=== PATIENT | male | born 1960 | race American Indian/Alaskan Native ===

== ENCOUNTER 2016-11-23 06:27 | Observation (INO) ==
[2016-11-23] MEDS ORDERED: IPRATROPIUM/ALBUTEROL 3 ML AMPUL.NEB NEB ONE (06:36)
--- NOTE | 2016-11-23 07:21 | Emergency Department Note ---
SOB HPI - General Chief Complaint: Shortness of Breath/Dyspnea Stated Complaint: shortness of breath Time Seen by Provider: 11/23/16 07:15 Source: patient Mode of arrival: ambulatory Limitations: no limitations - History of Present Illness This patient has had shortness of breath on and off since June when he had pneumonia. He says steroids and DuoNeb treatments never help him. Last night he did wake up very short of breath. He has had some edema. He has had some blood work at [facility] that we do not know the results. Has never had an echocardiogram. Has some epigastric pain currently but no actual chest pain. MD Complaint: shortness of breath, chest pain (left lateral chest tenderness or he thinks he might of broken a rib couple of weeks ago.) Onset (ago): month(s) Severity: moderate Consistency/Duration: intermittent Improves with: nothing Worsens with: lying flat Associated symptoms: Reports: denies other symptoms - Related Data Home Medications Medication Instructions Recorded Confirmed metFORMIN [Glucophage] 500 mg PO BIDCC 11/23/16 11/23/16 Allergies Allergy/AdvReac Type Severity Reaction Status Date / Time Penicillins Allergy Unknown Verified 11/23/16 06:33 Sulfa (Sulfonamide Allergy Unknown Verified 11/23/16 06:33 Antibiotics) Review of Systems Constitutional: Denies: fever Eyes: Denies: eye pain ENT ED: Denies: ear pain, throat pain Cardiovascular: Reports: dyspnea on exertion, orthopnea, edema. Denies: chest pain, palpitations Respiratory: Reports: dyspnea. Denies: cough, wheezes Gastrointestinal: Denies: abdominal pain, nausea, vomiting Genitourinary: Denies: urgency Musculoskeletal: Denies: back pain Integumentary: Denies: rash Neurological: Denies: headache Past Medical History - Past Medical History Medical history: Reports: diabetes Physical Exam - General Limitations: no limitations General appearance: alert, in no apparent distress - Head Head exam: atraumatic, normocephalic - Eye Eye exam: Present: normal appearance, PERRL - ENT ENT exam: normal exam, normal oropharynx - Neck Neck exam: Present: normal inspection - Chest Chest inspection: Present: normal inspection, symmetric chest wall rise - Respiratory Respiratory exam: Present: other (scattered rales and rhonchi) - Cardiovascular Cardiovascular exam: Present: regular rate, normal rhythm, normal heart sounds - Abdominal Exam Abdominal exam: Present: soft, tenderness. Absent: distention Abdominal tenderness: Present: epigastrium, mild - Neurological Exam Neurological exam: Present: alert, oriented X3 - Psychiatric Psychiatric exam: Present: normal affect, normal mood - Skin Skin exam: Present: warm, dry Course Vital Signs Pulse Rate 89 11/23/16 06:27 Respiratory Rate 20 11/23/16 06:27 Blood Pressure 148/103 11/23/16 06:27 Pulse Oximetry (%) 97 11/23/16 06:27 Pulse Rate 109 H 11/23/16 07:54 Respiratory Rate 28 H 11/23/16 07:54 Blood Pressure 145/105 11/23/16 07:54 Pulse Oximetry (%) 95 11/23/16 07:54 Shortness of Breath/Dyspnea - [facility] Narrative Medical decision making narrative: An x-ray is primary problem is congestive heart failure. His BNP is 8000 chest x-ray looks like heart failure. We will start Lasix and he'll be admitted to telemetry by Dr. Kirby. - Lab Data Lab results reviewed: Yes I reviewed the patient's lab results. Result diagrams: 11/23/16 06:50 11/23/16 06:50 Lab Results 11/23/16 11/23/16 11/23/16 Range/Units 06:50 06:50 06:50 WBC 7.4 (4.5-11.0) K/mcL RBC 5.09 (4.50-5.90) M/mcL Hgb 14.6 (13.5-16.5) g/dL Hct 45.5 (41.0-55.0) % MCV 89.4 (80.0-100.0) fL MCH 28.7 (26.0-34.0) pg MCHC 32.2 (31.0-36.0) g/dL RDW 14.9 H (11.5-14.5) % Plt Count 177 (140-440) K/mcL MPV 8.6 (7.4-10.4) fL Gran % 65.3 (38.0-78.0) % Lymph % (Auto) 23.6 (15.5-49.0) % [place] % (Auto) 7.7 (1.0-12.0) % Eos % (Auto) 2.8 (0.0-7.0) % Baso % (Auto) 0.6 (0.0-2.0) % Gran # 4.9 (1.8-8.0) K/mcL Lymph # 1.8 (1.5-4.8) K/mcL [place] # 0.6 (0.1-0.9) K/mcL Eos # 0.2 (0.0-0.7) K/mcL Baso # 0 (0.0-0.3) K/mcL D-Dimer (0.00-0.40) ug/ml Sodium 140 (133-145) mmol/L Potassium 4.2 (3.3-5.1) mmol/L Chloride 104 (96-108) mmol/L Carbon Dioxide 20 L (22-30) mmol/L Anion Gap 16.0 (8-16) BUN 18 (6-20) mg/dl Creatinine 1.6 H (0.7-1.2) mg/dl GFR Calculation 47 Glucose 234 H (70-105) mg/dL Calcium 8.8 (8.6-10.4) mg/dl Total Bilirubin 1.6 H (0.0-1.0) mg/dL AST 18 (0-37) U/l ALT 20 (0-40) U/l Alkaline Phosphatase 76 (39-117) U/L Troponin T < 0.01 (0-0.03) ng/ml NT-Pro-B Natriuret Pep (0-125) pg/ml Total Protein 6.9 (5.9-8.4) gm/dL Albumin 3.6 (3.2-5.2) gm/dL Globulin 3.3 (2.2-3.7) gm/dL Albumin/Globulin Ratio 1.1 (1.0-2.3) Lipase 39 (7-60) U/L Urine Color Urine Appearance Urine pH (5.0-9.0) Ur Specific Alexis (1.000-1.035) Urine Protein (NEG) mg/dL Urine Glucose (UA) (NEG) mg/dL Urine Ketones (NEG) mg/dL Urine Occult Blood (<0.03) mg/dL Urine Nitrate (NEG) Urine Bilirubin (NEG) mg/dL Urine Urobilinogen (NEG) mg/dL Ur Leukocyte Esterase (NEG) /uL Urine RBC (0-1) /hpf Urine WBC (0-4) /hpf Ur Squamous Epith Cells (0-4) /hpf Urine Bacteria (0) /hpf Hyaline Casts (0-2) /lpf Urine Mucus (0) /hpf Ur Culture Indicated? 11/23/16 11/23/16 11/23/16 Range/Units 06:50 06:50 07:21 WBC (4.5-11.0) K/mcL RBC (4.50-5.90) M/mcL Hgb (13.5-16.5) g/dL Hct (41.0-55.0) % MCV (80.0-100.0) fL MCH (26.0-34.0) pg MCHC (31.0-36.0) g/dL RDW (11.5-14.5) % Plt Count (140-440) K/mcL MPV (7.4-10.4) fL Gran % (38.0-78.0) % Lymph % (Auto) (15.5-49.0) % [place] % (Auto) (1.0-12.0) % Eos % (Auto) (0.0-7.0) % Baso % (Auto) (0.0-2.0) % Gran # (1.8-8.0) K/mcL Lymph # (1.5-4.8) K/mcL [place] # (0.1-0.9) K/mcL Eos # (0.0-0.7) K/mcL Baso # (0.0-0.3) K/mcL D-Dimer 1.43 H (0.00-0.40) ug/ml Sodium (133-145) mmol/L Potassium (3.3-5.1) mmol/L Chloride (96-108) mmol/L Carbon Dioxide (22-30) mmol/L Anion Gap (8-16) BUN (6-20) mg/dl Creatinine (0.7-1.2) mg/dl GFR Calculation Glucose (70-105) mg/dL Calcium (8.6-10.4) mg/dl Total Bilirubin (0.0-1.0) mg/dL AST (0-37) U/l ALT (0-40) U/l Alkaline Phosphatase (39-117) U/L Troponin T (0-0.03) ng/ml NT-Pro-B Natriuret Pep 8794.0 H (0-125) pg/ml Total Protein (5.9-8.4) gm/dL Albumin (3.2-5.2) gm/dL Globulin (2.2-3.7) gm/dL Albumin/Globulin Ratio (1.0-2.3) Lipase (7-60) U/L Urine Color Yellow Urine Appearance Hazy Urine pH 5.0 (5.0-9.0) Ur Specific Alexis 1.026 (1.000-1.035) Urine Protein >=500 A (NEG) mg/dL Urine Glucose (UA) 150 A (NEG) mg/dL Urine Ketones Neg (NEG) mg/dL Urine Occult Blood Neg (<0.03) mg/dL Urine Nitrate Neg (NEG) Urine Bilirubin Neg (NEG) mg/dL Urine Urobilinogen Neg (NEG) mg/dL Ur Leukocyte Esterase Neg (NEG) /uL Urine RBC < 1 (0-1) /hpf Urine WBC 1 (0-4) /hpf Ur Squamous Epith Cells 1 (0-4) /hpf Urine Bacteria 0 (0) /hpf Hyaline Casts 4 H (0-2) /lpf Urine Mucus Few (0) /hpf Ur Culture Indicated? No - Radiology Data Radiology results reviewed: Yes I reviewed the patient's radiology results. ( chest x-ray is consistent with congestive heart failure.) - EKG Data EKG shows normal: Reports: sinus rhythm Rate: Reports: tachycardia Interpretation: Reports: no acute changes, normal EKG Disposition Clinical Impression: Congestive heart failure Disposition: Xfer As Outpt/Obs ([facility]) Condition: Good Referrals: Hi Morrell ARNP [Primary Care Provider] - Time of Disposition: 08:22
[2016-11-23 07:24] LABS: Basophils # (Auto) 0 K/mcL (0.0-0.3); Basophils % (Auto) 0.6 % (0.0-2.0); Eosinophils # (Auto) 0.2 K/mcL (0.0-0.7); Eosinophils % (Auto) 2.8 % (0.0-7.0); Granulocytes % (Auto) 65.3 % (38.0-78.0); Lymphocytes # (Auto) 1.8 K/mcL (1.5-4.8); Lymphocytes % (Auto) 23.6 % (15.5-49.0); Mean Cell Volume 89.4 fL (80.0-100.0); Mean Corpuscular HGB Conc 32.2 g/dL (31.0-36.0); Mean Corpuscular Hemoglobin 28.7 pg (26.0-34.0); Monocytes # (Auto) 0.6 K/mcL (0.1-0.9); Monocytes % (Auto) 7.7 % (1.0-12.0); Platelet Count 177 K/mcL (140-440); RBC 5.09 M/mcL (4.50-5.90); Red Cell Distribution Width 14.9 % (11.5-14.5)
[2016-11-23 07:48] LABS: ALT/SGPT 20 U/l (0-40); Albumin 3.6 gm/dL (3.2-5.2); Albumin/Globulin Ratio 1.1 (1.0-2.3); Alkaline Phosphatase 76 U/L (39-117); Blood Urea Nitrogen 18 mg/dl (6-20); Lipase 39 U/L (7-60)
[2016-11-23 08:09] LABS: Appearance,Urine HAZY; Bacteria,Urine 0 /hpf (0); Bilirubin,Urine NEG (NEG); Color,Urine YELLOW; Glucose,Urine (UA) 150 mg/dL (NEG); Leukocyte Esterase,Urine NEG /uL (NEG); Mucus,Urine FEW /hpf (0); Nitrate,Urine NEG (NEG); Protein,Urine >=500 mg/dL (NEG); Specific Gravity,Urine 1.026 (1.000-1.035); Urine Blood NEG mg/dL (<0.03); Urine Hyaline Cast 4 /lpf (0-2); Urine RBC < 1 /hpf (0-1); Urine Squamous Epithelial Cell 1 /hpf (0-4); Urine WBC 1 /hpf (0-4); Urobilinogen,Urine NEG (NEG)
[2016-11-23] MEDS ORDERED: FUROSEMIDE 20 MG/2 ML VIAL IV ONE (08:20)
--- NOTE | 2016-11-23 09:03 | XRay Report ---
CLINICAL INFORMATION: Shortness of breath COMPARISON: 08/07/2016 FINDINGS: The heart has increased in size and now moderately enlarged. Mediastinum is unremarkable. Pulmonary vessels are mildly distended and there is moderate interstitial edema throughout both lungs. Mild bibasilar atelectasis noted. Small bilateral pleural effusions are appreciated IMPRESSION: Moderate CHF Interpreted and Authenticated by: Nasir Villanueva 11/23/16
[2016-11-23] MEDS ORDERED: DEXTROSE 50% 50 ML VIAL IV PRN (10:42)
[2016-11-23] MEDS ORDERED: POTASSIUM CHLORIDE 20 MEQ PACKET PO PRN (10:42)
[2016-11-23] MEDS ORDERED: MAGNESIUM SULFATE 2 GM/50 ML BAG IV PRN (10:42)
[2016-11-23] MEDS ORDERED: ACETAMINOPHEN 325 MG TABLET PO PRN (10:42)
[2016-11-23] MEDS ORDERED: ONDANSETRON 4 MG/2 ML VIAL IV PRN (10:42)
[2016-11-23] MEDS ORDERED: ACETAMINOPHEN 1,000 MG/100 ML BOTTLE IV PRN (10:42)
[2016-11-23] MEDS: 0.9 % SODIUM CHLORIDE 10 ML SYRINGE IV SCH ×3 (11:00→21:03)
[2016-11-23 11:06] LABS: C-Reactive Protein 0.8 mg/dl (0.0-0.8)
[2016-11-23] MEDS: DOCUSATE SODIUM 100 MG CAPSULE PO SCH ×2 (12:42→20:55)
[2016-11-23] MEDS: HEPARIN 5,000 UNIT/ML VIAL SQ SCH ×2 (12:42→20:54)
[2016-11-23] MEDS: sitaGLIPtin 50 MG TABLET PO SCH (12:42)
[2016-11-23] MEDS: INSULIN LISPRO 1 UNIT/0.01 ML UNIT SQ SCH ×3 (12:59→20:55)
[2016-11-23] MEDS ORDERED: ASPIRIN 81 MG TAB.CHEW CHEWED ONE (14:02)
[2016-11-23 14:08] LABS: Hemoglobin A1C 8.7 % HGB (4.0-6.0)
--- NOTE | 2016-11-23 14:28 | History and Physical Report ---
DATE OF ADMISSION: 11/23/2016 PRIMARY CARE PHYSICIAN: Jarrod Early, VIRGINIE-C REASON FOR ADMISSION: Worsening progressive shortness of breath, failed outpatient treatment. 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 He comes to [facility] ER along with his with progressive dyspnea that has bothered him since late July and has advanced to the point the patient could barely function. He gets dyspneic at rest with significant orthopnea. He is unable to perform activities of daily living. He was evaluated with lung function tests that showed restrictive lung changes a week ago at his primary care provider's. Intermittently he has been treated on steroids and bronchodilators for presumed bronchitis/reactive airway disease; however, patient failed to improve despite above treatment. His effort tolerance has considerably worsened. He has been coughing, but denies any bloody expectoration. He endorses to yellow, green phlegm. He denies flu or pneumonia vaccine. He also denies sick contacts. He denies NSAIDs or new medication use. He used to work in the [employer] and had a longstanding past smoking exposure. He denies excessive alcohol use. Initial workup in the ER was significant for congestive heart failure. The patient was started on Lasix. Hospitalist Service was consulted. At the time of examination, the patient is alert. He feels slightly better after 750 mL diuresis. He was able to provide answers to most of the questions and endorse above history. REVIEW OF SYSTEMS: Ten-point review of system was performed and negative except the ones discussed above. PAST MEDICAL HISTORY: 1. Diabetes mellitus type 2. 2. Possible chronic kidney disease. Last baseline creatinine 1.3. ALLERGIES: 1. PENICILLIN. 2. SULFA. CURRENT MEDICATION: Metformin. SOCIAL HISTORY: The patient lives in [place] along with his . 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 No history of smoking, very occasional alcohol, last consumption 4 months ago. No history of substance abuse. FAMILY HISTORY: No significant cardiac history. PHYSICAL EXAMINATION: GENERAL: The patient is in moderate short of breath, but nondistressed. BMI 26.6. Height 5 feet 7 inches. VITAL SIGNS: Blood pressure 130/96, respiration rate 26, temperature 98.1, pulse 102, sats 94% on room air. HEENT: Pupils symmetric. Oral cavity is dry. No ear or nose discharge. Head is normocephalic and atraumatic. NECK: No lymphadenopathy. CHEST: S1, S2 regular rhythm, tachycardia. ESM grade 1. Diminished breath sounds bilateral bases, late inspiratory crackles bilateral posterior and lateral chest. ABDOMEN: Soft and nontender. LOWER EXTREMITIES: No cyanosis or clubbing. No joint swelling. SKIN: No suspicious lesions. PSYCHIATRIC: Mild anxiety, but alert and cooperative. No agitation. NEURO: Nonfocal, moving all four extremities. LABS AND IMAGING: White count 7.4, hemoglobin 14.6. ESR 8, D-dimer 1.4. Sodium 140, potassium 4.2, creatinine 1.6, BUN 18. BNP 8794. UA unremarkable. X-ray chest: Moderate CHF. Echocardiogram pending. ASSESSMENT AND PLAN: A 56-year-old admitted with acute decompensated heart failure. 1. Acute decompensated heart failure. Echo pending to evaluate systolic function. Start diuresis and initiate beta blockers, ANTHONY inhibitor in the next 24 hours once acute decompensation resolves. 2. Diabetes mellitus type 2. Continue prandial insulin and sitagliptin. 3. Dyspnea with hypoxia. Continue aggressive diuresis and pulmonary toilet. 4. Acute on chronic kidney disease, unclear etiology, possibly diabetic; however, we will continue monitoring renal function. If persistent elevation of creatinine, will consult Nephrology for outpatient management of chronic kidney disease. PLAN FOR TODAY: 1. Admit as observation to tele. 2. Aggressive diuresis. 3. Echocardiogram. AA:meka Job ID: [id number] Doc ID: [id number] Gary Early ROUTE RIDER-C
[2016-11-23] MEDS ORDERED: METOPROLOL SUCCINATE 25 MG TAB.XL.24H PO ONE (15:15)
[2016-11-23] MEDS: FUROSEMIDE 40 MG/4 ML VIAL IV SCH (15:51)
[2016-11-23] MEDS ORDERED: SIMVASTATIN 20 MG TABLET PO SCH (21:00)
[2016-11-23] MEDS ORDERED: traZODone HCL 50 MG TABLET PO PRN (21:00)
[2016-11-23] MEDS ORDERED: SENNOSIDES/DOCUSATE SODIUM 1 TAB TABLET PO SCH (21:00)
[2016-11-24] MEDS: 0.9 % SODIUM CHLORIDE 10 ML SYRINGE IV SCH (05:24)
[2016-11-24 06:27] LABS: Mean Cell Volume 88.6 fL (80.0-100.0); Mean Corpuscular HGB Conc 32.9 g/dL (31.0-36.0); Mean Corpuscular Hemoglobin 29.1 pg (26.0-34.0); Platelet Count 170 K/mcL (140-440); Red Cell Distribution Width 14.7 % (11.5-14.5)
[2016-11-24 06:36] LABS: ALT/SGPT 15 U/l (0-40); Albumin 3.5 gm/dL (3.2-5.2); Albumin/Globulin Ratio 1.2 (1.0-2.3); Alkaline Phosphatase 65 U/L (39-117); Bilirubin,Direct 0.3 mg/dL (0.0-0.3); Blood Urea Nitrogen 21 mg/dl (6-20); Gamma Glutamyl Transpeptidase 45 U/L (8-61); Magnesium 1.8 mg/dL (1.6-2.5); Phosphorous 5.1 mg/dL (2.7-4.5); Uric Acid 10.4 mg/dL (2.5-8.0)
[2016-11-24 07:27] LABS: Band Neutrophils % 1 % (0-10); Lymphocytes % 20 % (15-49); Monocytes % (Manual) 8 % (1-9); Platelet Estimate NORMAL (NORMAL); RBC Morphology NORMAL (NORMAL); Segmented Neutrophils % 71 % (38-78)
[2016-11-24] MEDS ORDERED: PANTOPRAZOLE 40 MG TABLET PO SCH (07:30)
[2016-11-24] MEDS: INSULIN LISPRO 1 UNIT/0.01 ML UNIT SQ SCH (08:08)
[2016-11-24] MEDS: HEPARIN 5,000 UNIT/ML VIAL SQ SCH (08:53)
[2016-11-24] MEDS: FUROSEMIDE 40 MG/4 ML VIAL IV SCH (08:53)
[2016-11-24] MEDS: sitaGLIPtin 50 MG TABLET PO SCH (08:54)
[2016-11-24] MEDS: DOCUSATE SODIUM 100 MG CAPSULE PO SCH (08:56)
--- NOTE | 2016-11-24 08:56 | Echocardiogram Report ---
ECHOCARDIOGRAM: 2-D and M-mode echocardiography with cardiac Doppler and color flow imaging were performed with a [employer] A[employer]io MX. Indication is heart failure. A diagnostic M-mode tracing of the LV could not be obtained. Overall size of the RA, RV, and aortic root appeared normal. The LA appeared moderately enlarged. The LV appeared moderately to severely enlarged. Wall thickness appeared normal. Systolic performance appeared severely and globally depressed. Estimated ejection fraction is 15-20%. There was no evidence for mural thrombi. The aortic valve appeared trileaflet and normal. There was no evidence for aortic stenosis or aortic regurgitation by Doppler interrogation. The mitral and tricuspid valves appeared unremarkable. Doppler interrogation of the LV inflow disclosed a so-called restrictive pattern as can be seen with heart failure. Mitral regurgitation, probably mild (1+), was demonstrated. Pulmonary venous interrogation disclosed ''d'' wave dominance indicating elevated pulmonary wedge pressure. The pulmonic valve was not visualized. Pulmonary artery acceleration time appeared shortened. There was no evidence for pulmonic stenosis or pulmonic regurgitation. Tricuspid regurgitation, probably moderate (2+), was demonstrated. No intracardiac shunting was appreciated. A small posterior echo free space indicating pericardial effusion was present. The IVC was dilated and did not vary with the respiratory cycle indicating raised CVP. Calculated estimated of PA systolic pressure is severely elevated at 70-75 mmHg. Borderline sinus tachycardia, rate 100, was present. CONCLUSION:Moderate to severe LV enlargement with very severe global systolic and diastolic dysfunction. Mitral regurgitation, probably mild (1+), with moderate LA enlargement, elevated pulmonary wedge pressure/severe and probably passive pulmonary hypertension and raised CVP. Small posterior pericardial effusion. (See accompanying M-mode and Doppler reports for quantitation.) ECHOCARDIOGRAPHY M-MODE CALCULATIONS: HT: 67'' WT: 170 BSA: 1.89 m2 NORMALS AORTA: AORTIC ROOT 3.5 2.0-3.7 cm LEFT ATRIUM 4.5 1.9-4.0 cm MITRAL VALVE: EXCURSION 1.8 1.9-2.7 cm EPSS 1.7 <0.5 cm LT VENTRICLE: LVID (ED) -- 3.5-5.7 cm LVID (ES) -- SEPTAL THICKNESS -- 0.6-1.1 cm SEPTAL EXCURSION -- 0.3-0.8 cm LVPW THICKNESS -- 0.6-1.1 cm LVPW EXCURSION -- 0.9-1.4 cm MINOR AXIS FS -- 25%-40% RT VENTRICLE: RVID (ED) -- 0.9-2.6 cm(up to 3cm if LLD) QUALITATIVE DOPPLER FLOW STUDIES MITRAL VALVE MR, probably mild (1+) AORTIC VALVE -- TRICUSPID VALVE TR, probably moderate (2+) PULMONIC VALVE -- QUANTITATIVE DOPPLER FLOW STUDIES SAMPLE SITES VELOCITIES PEAK PRESSURE VALVE AREA and/or VALVE WINDOW (PEAK,M/SEC) DROP (GRADIENT) PRESSURE HALF-TIME MV (Diastole) 0.75 -- -- MV (Systole) 4.0 -- -- AO (Diastole) -- -- -- AO (Systole) 0.7 -- -- TV (Systole) 3.7 -- -- PV (Systole) 0.5 -- -- PV (Diastole) -- LWG:meka Job ID: [id number] Doc ID: [id number] Karthik Witt MD
[2016-11-24] MEDS ORDERED: METOPROLOL SUCCINATE 25 MG TAB.XL.24H PO SCH (09:00)
[2016-11-24] MEDS ORDERED: LOSARTAN 25 MG TABLET PO SCH (09:00)
[2016-11-24] MEDS ORDERED: FISH OIL 1,000 MG CAPSULE PO SCH (09:00)
[2016-11-24] MEDS ORDERED: ERGOCALCIFEROL (VITAMIN D2) 50,000 UNIT CAPSULE PO SCH (09:00)
[2016-11-24] MEDS ORDERED: ASPIRIN 81 MG TAB.CHEW CHEWED SCH (09:00)
[2016-11-24] MEDS ORDERED: DIGOXIN 125 MCG TABLET PO SCH (09:00)
--- NOTE | 2016-11-24 11:49 | Discharge Summary ---
Medical - DS: Prov Patient information: Note initiated : 11/24/16 at 11:45 am Service Date, if different from initiated Date: [] Patient: Luis Manuel Morales 56 y/o M admitted on 11/23/16 for shortness of breath. Chief Complaint: [] Date of admission: 11/23/16 10:03 Discharge date: 11/24/16 Primary care physician: [f_Reg Prim Care Provider] Medical - DS: Meds - Discharge Medications Prescriptions: Aspirin 81 mg CHEWED DAILY #30 tab.chew Digoxin [Lanoxin] 125 mcg PO Q48@0900 #30 tablet Furosemide [Lasix] 20 mg PO DAILY #30 tablet Losartan [Cozaar] 25 mg PO DAILY #30 tablet Metoprolol Succinate [Toprol Xl] 25 mg PO DAILY #30 tab.xl.24h Potassium Chloride [Kdur] 20 me[facility] [place] Simvastatin [Zocor] 40 mg PO HS #60 tablet Active and Home Medications: Home Medications Aspirin [Adult Low Dose Aspirin EC] 81 mg PO DAILY 11/23/16 [History Confirmed 11/23/16 Last Taken Unknown] Ergocalciferol (Vitamin D2) [Vitamin D2] 50,000 unit PO WEEKLY 11/23/16 [ History Confirmed 11/23/16 Last Taken Unknown] Irbesartan [Avapro] 75 mg PO DAILY 11/23/16 [History Confirmed 11/23/16 Last Taken Unknown] Adrian-3/Dha/Epa/Fish Oil [Fish Oil 1,000 mg Softgel] 2,000 mg PO DAILY 11/23/16 [History Confirmed 11/23/16 Last Taken Unknown] Rosuvastatin [Crestor] 20 mg PO HS 11/23/16 [History Confirmed 11/23/16 Last Taken Unknown] metFORMIN [Glucophage] 500 mg PO BIDCC 11/23/16 [History Confirmed 11/23/16 Last Taken 11/19/16 09:00] Aspirin 81 mg CHEWED DAILY #30 tab.chew 11/24/16 [Rx Last Taken Unknown] Digoxin [Lanoxin] 125 mcg PO Q48@0900 #30 tablet 11/24/16 [Rx Last Taken Unknown ] Furosemide [Lasix] 20 mg PO DAILY #30 tablet 11/24/16 [Rx Last Taken Unknown] Losartan [Cozaar] 25 mg PO DAILY #30 tablet 03/28/17 [Rx Last Taken Unknown] Metoprolol Succinate [Toprol Xl] 25 mg PO DAILY #30 tab.xl.24h 11/24/16 [Rx Last Taken Unknown] Potassium Chloride [Kdur] 20 meq PO QAMCC #30 tablet 11/24/16 [Rx Last Taken Unknown] Simvastatin [Zocor] 40 mg PO HS #60 tablet 11/24/16 [Rx Last Taken Unknown] Medical - DS: Hosp Hospital course: DISCHARGE DIAGNOSIS * Acute decompensated heart failure with underlying NYHA class IV systolic heart failure EF 15% . Unclear etiology. Recommend cardiology follow-up for evaluation of underlying etiology including ischemic cardiomyopathy. Continue ANTHONY inhibitor/beta pankaj/aspirin/statin/digoxin and diuretics as needed * DM type II continue metformin/consistent carbohydrate diet * history of chronic kidney disease - creatinine around 1.5. unclear etiology. Possibly underlying diabetes related. follow-up with nephrology in 2 weeks. Creatinine at 1.6. BRIEF HOSPITAL COURSE Mr. Morales is a 56 year old male Was admitted with worsening shortness of breath. Echocardiogram revealed EF 15%. Chest x-ray pulmonary edema. initiated on Aggressive diuresis with significant improvement in 24 hours. Started on ANTHONY inhibitor/beta pankaj/aspirin/statin/digoxin. Patient will require outpatient workup to evaluate cause of cardiomyopathy. Schedule outpatient cardiology follow-up. He'll also require outpatient nephrology follow-up in light of elevated creatinine 1.6 likely secondary to underlying diabetes. patient was aggressively counseled to refrain from alcohol and close monitoring of symptoms/daily weight and use of Lasix based on symptoms and fluid retention. i recommend a low-salt diet n discharge. patient will benefit from defibrillator evaluation in light of high risk sudden cardiac given igh propensity for ventricular dysrhythmias. Discharge diagnosis: . - Time Spent with Patient Total time spent providing and/or coordinating discharge services: Greater than 30 minutes Medical - DS: Exam - Constitutional Vitals: Vital Signs Temp Pulse Resp BP Pulse Ox 11/24/16 11:44 98.8 F 20 121/75 92 11/24/16 08:00 98.6 F 96 H 18 121/76 96 11/24/16 05:00 18 96 11/24/16 04:00 97.6 F 73 18 128/88 96 11/24/16 03:00 18 96 11/24/16 02:00 18 11/24/16 01:00 20 96 11/23/16 23:58 20 96 11/23/16 23:48 97.7 F 89 16 122/85 96 11/23/16 23:00 18 98 11/23/16 22:43 98 11/23/16 22:00 18 97 11/23/16 21:00 18 97 11/23/16 20:00 96.6 F L 18 118/85 96 11/23/16 19:00 94 H 20 96 11/23/16 18:00 18 97 11/23/16 16:00 98.6 F 18 114/78 95 11/23/16 15:19 20 140/101 93 11/23/16 13:07 97.9 F 103 H 144/97 94 Intake and Output 11/23/16 11/24/16 11/24/16 21:59 05:59 13:59 Intake Total 240 / 240 600 / 600 Output Total 1775 / 1775 250 / 250 300 / 300 Balance -1535 / -1535 -250 / -250 300 / 300 Intake: Oral 240 / 240 600 / 600 Output: Void Amount 1775 / 1775 250 / 250 300 / 300 Other: Meal Dinner Breakfast Percent of Meal Consumed 25% 100% Feeding Ability Assist with Tray Set Up # Voids 1 Weight 172 lb 12.8 oz Medical - DS: Data Labs on day of discharge: Labs from last 24 hours 11/24/16 11/24/16 05:20 05:20 WBC 7.5 RBC 5.00 Hgb 14.6 Hct 44.3 MCV 88.6 MCH 29.1 MCHC 32.9 RDW 14.7 H Plt Count 170 MPV 8.4 Total Counted 100 Seg Neutrophils % 71 Band Neutrophils % 1 Lymphocytes % 20 Monocytes % (Manual) 8 Platelet Estimate Normal RBC Morphology Normal Sodium 142 Potassium 4.6 Chloride 105 Carbon Dioxide 23 Anion Gap 14.0 BUN 21 H Creatinine 1.7 H GFR Calculation 44 Glucose 129 H Uric Acid 10.4 H Calcium 9.0 Phosphorus 5.1 H Magnesium 1.8 Total Bilirubin 2.1 H Direct Bilirubin 0.3 GGT 45 AST 17 ALT 15 Alkaline Phosphatase 65 Lactate Dehydrogenase 210 Total Protein 6.5 Albumin 3.5 Globulin 3.0 Albumin/Globulin Ratio 1.2 Triglycerides 72 Medical - DS: A/P - Patient/Caregiver Discharge Instructions Activity: increase activity as tolerated Diet: Consistent Carbohydrate, Renal/Consistent Carbs Additional Instructions: Follow-up PCP in 5 days follow-up with cardiology earliest possible appointment for evaluation of cardiomyopathy Follow-up nephrology in 1-2 weeks for evaluation of chronic kidney disease continue ANTHONY inhibitor/beta pankaj/aspirin and statin and digoxin as advised I recommend primary care physician to check BMP as a posthospital follow-up daily weights measurements and take additional 40 mg Lasix for 3 days if weight gain over 4 pounds over baseline or worsening shortness of breath and call primary care physician if inadequate response to Lasix Return to ER if worsening shortness of breath/ Review risk and side effect profile of medications including Anthony inhibitor/beta blockers. Side effect may include mild to severe reaction including low heart rate/low blood pressure dizziness lightheadedness falls and even which can be prevented by close follow-up with PCP and monitoring for side effects Refrain from alcohol Continue CCB/renaldiet and activity as tolerated absolutely avoid NSAIDs Discussed importance of medication adherence Please review medication list with patient prior to discharge Please schedule follow-up with PCP/Providers prior to discharge and provide printouts CC- PCP Prescriptions: Aspirin 81 mg CHEWED DAILY #30 tab.chew Digoxin [Lanoxin] 125 mcg PO Q48@0900 #30 tablet Furosemide [Lasix] 20 mg PO DAILY #30 tablet Losartan [Cozaar] 25 mg PO DAILY #30 tablet Metoprolol Succinate [Toprol Xl] 25 mg PO DAILY #30 tab.xl.24h Potassium Chloride [Kdur] 20 meq PO QAMCC #30 tablet Simvastatin [Zocor] 40 mg PO HS #60 tablet - Follow up Plan Follow up with: Hi Morrell ARNP [Primary Care Provider] - Everette Vallejo [Physician] - (Dr. Vallejo office will contact you to schedule a cardiology appointment after reviewing your records. ) Disposition: Home, Self-Care Prognosis: Good Rehab Potential: Undetermined I certify that the patient requires SNF services: No Overall status at discharge: patient is progressing back to baseline Medical - DS: Qual - VTE Deep Vein Thrombosis/Pulmonary Embolism Present on Admission: No
== END 2016-11-24 13:55 | disposition home or self-care (01) ==
LOC: ED 06:27 → ICU 06:27
PROVIDERS: ADMIT Internal Medicine; ATTEND Internal Medicine